=== PATIENT | female | born 1970 | race Caucasian/White ===

== ENCOUNTER 2017-05-10 16:37 | Outpatient (CLI) | payer BC | END 2017-05-10 16:38 | disposition home or self-care (01) | LOC: BICMAMMO 16:37 | PROVIDERS: ATTEND Family Medicine | DX: Z12.31 Encounter for screening mammogram for malignant neoplasm of breast (principal); Z80.3 Family history of malignant neoplasm of breast | CPT/HCPCS: 77063; 77067 ==

== ENCOUNTER 2018-05-17 16:16 | Outpatient (CLI) | payer BC | END 2018-05-17 16:17 | disposition home or self-care (01) | LOC: BICMAMMO 16:16 | PROVIDERS: ATTEND Family Medicine | DX: Z12.31 Encounter for screening mammogram for malignant neoplasm of breast (principal); R92.1 Mammographic calcification found on diagnostic imaging of breast; Z80.3 Family history of malignant neoplasm of breast | CPT/HCPCS: 77063; 77067 ==

== ENCOUNTER 2019-05-26 08:07 | Outpatient (CLI) | payer BC ==
--- NOTE | 2019-05-26 10:20 | ULT ---
LEFT BREAST ULTRASOUND: Indications: Physician specified breast mass, however, did not specify location. No mammogram abnormality identified. FINDINGS: Left breast evaluated in all quadrants. Enterprise Manager images were taken from all quadrants. No sonog raphic abnormality identified. IMPRESSION: Ultrasound findings are BIRADS 1 - negative. POS: SANCHEZ
--- NOTE | 2019-05-26 10:22 | ULT ---
ULTRASOUND RIGHT BREAST: Indications: Physician requested states mass right breast. Location of mass is not specified. Mammogram shows no abnormality. FINDINGS: Sonographic images in all quadrants. Mason Apprentice images obtained from all quadrants. No sonographic abnormality identified. IMPRESSION: Ultrasound findings of right breast are BIRADS 1 - negative. POS: SANCHEZ
--- NOTE | 2019-05-26 12:03 | MMO ---
Bilateral MAMMO Bilat Diag [facility]. CLINICAL HISTORY: Patient is 48 years old and is seen for diagnostic exam. The patient has the following family history of breast cancer: maternal aunt. The patient has no personal history of cancer. VIEWS: The views performed were: bilateral craniocaudal with tomosynthesis; bilateral mediolateral oblique with tomosynthesis; bilateral mediolateral with tomosynthesis; right mediolateral; and cleavage view. FILMS COMPARED: The present examination has been compared to prior imaging studies performed at [facility] on 05/10/2017, 05/17/2018 and 05/26/2019. This study has been interpreted with the assistance of computer-aided detection. MAMMOGRAM FINDINGS: The breasts are almost entirely fat. There are no suspicious masses, suspicious calcifications, or new areas of architectural distortion. IMPRESSION: THERE IS NO MAMMOGRAPHIC EVIDENCE OF MALIGNANCY. A ROUTINE FOLLOW-UP MAMMOGRAM IN 1 YEAR IS RECOMMENDED. THE RESULTS OF THIS EXAM WERE SENT TO THE PATIENT. ACR BI-RADS Category 1 - Negative MAMMOGRAPHY NOTE: 1. A negative mammogram report should not delay a biopsy if a dominant of clinically suspicious mass is present. 2. Approximately 10% to 15% of breast cancers are not detected by mammography. 3. Adenosis and dense breasts may obscure an underlying neoplasm. Reported by: WILLOW BUTLER MD Electonically Signed: [id number]
== END 2019-05-26 08:08 | disposition home or self-care (01) ==
LOC: BICMAMMO 08:07
PROVIDERS: ATTEND Family Medicine
DX: N63.20 Unspecified lump in the left breast, unspecified quadrant (principal); N63.10 Unspecified lump in the right breast, unspecified quadrant
CPT/HCPCS: 77066; G0279

== ENCOUNTER 2020-08-06 07:59 | Outpatient (CLI) | payer BC | END 2020-08-06 08:00 | disposition home or self-care (01) | LOC: BICMAMMO 07:59 | PROVIDERS: ATTEND Family Medicine | DX: Z12.31 Encounter for screening mammogram for malignant neoplasm of breast (principal); Z80.3 Family history of malignant neoplasm of breast | CPT/HCPCS: 77063; 77067 ==

== ENCOUNTER 2021-04-24 15:20 | Outpatient (CLI) | payer BC | END 2021-04-24 15:21 | disposition home or self-care (01) | LOC: BICULT 15:20 | PROVIDERS: ATTEND Nurse Practitioner Family | DX: R10.2 Pelvic and perineal pain (principal) | CPT/HCPCS: 76770 ==

== ENCOUNTER 2021-12-03 15:31 | Outpatient (CLI) | payer BC | END 2021-12-03 15:32 | disposition home or self-care (01) | LOC: BICMAMMO 15:31 | PROVIDERS: ATTEND Family Medicine | DX: Z12.31 Encounter for screening mammogram for malignant neoplasm of breast (principal); Z80.3 Family history of malignant neoplasm of breast | CPT/HCPCS: 77063; 77067 ==

== ENCOUNTER 2023-01-28 07:57 | Outpatient (CLI) | payer BC | END 2023-01-28 07:58 | disposition home or self-care (01) | LOC: BICMAMMO 07:57 | PROVIDERS: ATTEND Family Medicine | DX: Z12.31 Encounter for screening mammogram for malignant neoplasm of breast (principal); Z80.3 Family history of malignant neoplasm of breast | CPT/HCPCS: 77063; 77067 ==